=== PATIENT | female | born 1970 | race Caucasian/White ===

== ENCOUNTER 2022-04-22 06:36 | Day surgery (SDC) | payer OTHER ==
[~2022-04-22] VITALS: Ht 149.9 cm; Wt 96.6 kg
[2022-04-22] MEDS ORDERED: LIDOCAINE 2% 100 MG/5 ML UJET TP ONE (07:47)
[2022-04-22] MEDS ORDERED: fentaNYL citrate 0.05 MG/ML VIAL ONE (07:47)
[2022-04-22] MEDS ORDERED: fentaNYL citrate 0.05 MG/ML VIAL IVP ONE (08:45)
== END 2022-04-22 08:56 | disposition home or self-care (01) ==
LOC: MOR 06:36 → MMU 06:43 → MOR 08:56
PROVIDERS: ATTEND Internal Medicine Gastroenterology
DX: Z12.11 Encounter for screening for malignant neoplasm of colon (principal); Z79.899 Other long term (current) drug therapy; Z20.822 Contact with and (suspected) exposure to COVID-19
CPT/HCPCS: J3010